=== PATIENT | male | born 1965 | race Caucasian/White ===

== ENCOUNTER 2017-08-30 16:03 | Emergency (ER) | payer OTHER ==
[~2017-08-30] VITALS: Ht 172.7 cm; Wt 65.4 kg
[2017-08-30 16:15] VITALS: BP 124/81
[2017-08-30] MEDS ORDERED: LIDOCAINE 1%, 10ML ONE (17:09)
[2017-08-30] MEDS ORDERED: LIDOCAINE 1%, 20ML SQ ONE (17:30)
== END 2017-08-31 10:31 | disposition home or self-care (01) ==
LOC: ED 17:00
DX: S01.511A Laceration without foreign body of lip, initial encounter (principal); W01.0XXA Fall on same level from slipping, tripping and stumbling without subsequent striking against object, initial encounter; Y93.01 Activity, walking, marching and hiking; Y92.89 Other specified places as the place of occurrence of the external cause; Y99.8 Other external cause status
CPT/HCPCS: 12013; 99283